=== PATIENT | female | born 1990 | race African-American/Black ===

== ENCOUNTER 2018-08-29 11:31 | Emergency (ER) | payer MEDICAID ==
[~2018-08-29] VITALS: Ht 170.2 cm; Wt 113.0 kg
[2018-08-29 13:07] VITALS: BP 140/85
== END 2018-08-29 13:10 | disposition home or self-care (01) ==
LOC: ER 11:31
DX: L01.00 Impetigo, unspecified (principal)
CPT/HCPCS: 99283

== ENCOUNTER 2020-10-11 07:44 | Emergency (ER) | payer MEDICAID ==
[~2020-10-11] VITALS: Ht 182.9 cm; Wt 113.0 kg
[2020-10-11] MEDS ORDERED: AMOX-494 MT (08:39)
[2020-10-11] MEDS ORDERED: IBUP-2029 MT (08:39)
[2020-10-11] MEDS ORDERED: IBUPROFEN 600MG TABLET PO ONE (08:45)
[2020-10-11 08:59] VITALS: BP 132/75
== END 2020-10-11 09:00 | disposition home or self-care (01) ==
LOC: ER 07:44
DX: J02.9 Acute pharyngitis, unspecified (principal); R03.0 Elevated blood-pressure reading, without diagnosis of hypertension
CPT/HCPCS: 81025; 99282

== ENCOUNTER 2021-10-02 14:47 | Emergency (ER) | payer MEDICAID ==
[~2021-10-02] VITALS: Ht 182.9 cm; Wt 75.0 kg
[~2021-10-02 14:47] MED LIST: AMOX-494 MT; IBUP-2029 MT
[2021-10-02 14:52] VITALS: BP 134/80
[2021-10-02] MEDS ORDERED: ACETAMINOPHEN 325MG TABLET PO STA (14:54)
[2021-10-02 17:07] LABS: CHLORIDE 107 mEq/L (98-107)
[2021-10-02 17:10] LABS: BASOPHILS % 0.4 % (0.0-2.0); EOSINOPHILS % 0.5 % (0.0-5.0); HEMATOCRIT. 39.5 % (36.0-48.0); HEMOGLOBIN. 13.2 g/dL (12.0-16.0); LYMPHOCYTES % 28.1 % (20.0-50.0); MEAN CORPUSCULAR HEMOGLOBIN 29.9 pg (28.0-32.0); MEAN CORPUSCULAR VOLUME 89.3 fL (81.0-99.0); MEAN PLATELET VOLUME 9.7 fl (7.4-10.4); MONOCYTES % 6.1 % (2.0-8.0); NEUTROPHILS % 64.9 % (40.0-76.0); PLATELET 144 x1000/uL (130-400); RED BLOOD CELL COUNT 4.43 mill/uL (4.2-5.4); RED CELL DISTRIBUTION WIDTH 15.3 % (11.6-14.6)
[2021-10-02] MEDS ORDERED: ACET-2708 MT (17:30)
[2021-10-02 17:33] LABS: B-HCG QUANTITATIVE 14427 mIU/mL (<3)
[2021-10-02 18:14] LABS: CLARITY URINE CLEAR (CLEAR); KETONES URINE 1+ (NEGATIVE); LEUKOCYTE ESTERASE URINE NEGATIVE (NEGATIVE); NITRITE URINE NEGATIVE (NEGATIVE); OCCULT BLOOD URINE 3+ (NEGATIVE); PROTEIN URINE 3+ (NEGATIVE); SPECIFIC GRAVITY URINE 1.021 (1.005-1.030); UROBILINOGEN URINE 0.2 E.U./dL (0.2-1.0)
[2021-10-02 18:34] LABS: COLOR URINE RED (YELLOW)
[2021-10-02 18:46] LABS: METHADONE URINE SCREEN NEGATIVE (NEGATIVE); OPIATES URINE SCREEN NEGATIVE (NEGATIVE)
[2021-10-02 18:47] LABS: *AMPHETAMINES SCREEN URINE NEGATIVE (NEGATIVE); *BARBITURATES SCREEN URINE NEGATIVE (NEGATIVE); *BENZODIAZEPINES SCREEN URINE NEGATIVE (NEGATIVE); *COCAINE SCREEN URINE NEGATIVE (NEGATIVE); CANNABINOID URINE SCREEN NEGATIVE (NEGATIVE); PHENCYCLIDINE URINE SCREEN NEGATIVE (NEGATIVE)
== END 2021-10-02 17:55 | disposition home or self-care (01) ==
LOC: ER 14:47
DX: O03.9 Complete or unspecified spontaneous abortion without complication (principal); Z3A.08 8 weeks gestation of pregnancy
CPT/HCPCS: 36415; 76801; 80053; 80305; 81003; 81025; 84702; 85025; 86850; 86900; 99284